=== PATIENT | female | born 1980 | race Caucasian/White ===

== ENCOUNTER 2017-04-17 14:11 | Emergency (ER) | payer SELFPAY ==
[~2017-04-17] VITALS: Ht 157.5 cm; Wt 54.4 kg
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
--- NOTE | 2017-04-17 15:58 | NUR ---
PT APPEARS TO BE RESTING COMFORTABLY. NO S/S OF PAIN OR DISTRESS.
--- NOTE | 2017-04-17 16:12 | NUR ---
CALLED [facility] TO COME SEE PT
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
--- NOTE | 2017-04-17 20:10 | NUR ---
Patient discharged to home in stable condition. PT LEFT BEFORE RECEIVING Written and verbal after care instructions.
[2017-04-17 20:23] VITALS: BP 119/80
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
== END 2017-04-17 20:10 | disposition home or self-care (01) ==
LOC: ER 14:13
DX: T74.11XA Adult physical abuse, confirmed, initial encounter (principal); G35 Multiple sclerosis
CPT/HCPCS: A4606; Z7610